=== PATIENT | female | born 1965 | race Caucasian/White ===

== ENCOUNTER 2024-01-28 23:29 | Emergency (ER) | payer OTHER, SELFPAY ==
--- NOTE | 2024-01-28 23:41 | EKG_ITS ---
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
[2024-01-28 23:42] VITALS: BP 196/111; PULSE 88; PULSE 96; RESP 16; TEMP 36.3; O2SAT 98; O2SAT 99; BMI 34.6
--- NOTE | 2024-01-28 23:42 | ED.AMS ---
HPI - Altered Mental Status General Chief Complaint: Neuro Symptoms/Deficit Stated Complaint: possible stroke Time Seen by Provider: 01/28/24 23:34 History of Present Illness HPI narrative: 58-year-old female presents for evaluation of possible stroke. Patient states that she was picking out [employer] this evening in her usual state of health. Prior to bed she took a sleeping pill Zaleplon, which she has not taken in several months. While lying in bed with her he noticed that she seemed to have slurred speech and was hallucinating various objects moving on the peguero. Patient states that she was looking at the chair and seeing different objects and clothing move around when they obviously were not. Has been also stated that the patient's speech seemed to be somewhat slurred. They decided to bring her in for evaluation. Patient states that she feels fine and back to usual. Exam Initial Vital Signs Initial Vital Signs: Vital Signs Temperature 97.3 F L 01/28/24 23:42 Pulse Rate 96 H 01/28/24 23:42 Respiratory Rate 16 01/28/24 23:42 Blood Pressure 196/111 H 01/28/24 23:42 Pulse Oximetry 98 01/28/24 23:42 Oxygen Delivery Method Room Air 01/28/24 23:42 Const: Awake, alert, no acute distress, nontoxic appearing Cardiac: regular rate, regular rhythm RESP: unlabored, clear bilaterally, no wheezing Skin: Warm, Dry, intact, no rashes Neuro: AO x3, CN II-XII grossly intact, normal gait, NIH 0 Course Orders Ordered: ED Orders 01/28/24 23:41 CT head/brain wo con Stat Ammonia (NH3) Stat CBC Auto Diff [Complete Blood Count AUTO DIFF] Stat CMP [Comprehensive Metabolic Panel] Stat Ethanol (ETOH) Stat MAG [Magnesium] Stat PT [Prothrombin Time INR] Stat EKG-12 Lead Stat 01/29/24 00:40 UA Complete [Urinalysis and Microscopic] Stat Urine Drug Screen, Rapid Stat Vital Signs Vital signs: Vital Signs - 8 hr 01/28/24 23:42 01/28/24 23:42 01/29/24 00:04 Temperature 97.3 F L Pulse Rate 96 H 88 89 Respiratory Rate 16 Blood Pressure 196/111 H Pulse Oximetry 98 99 99 Oxygen Delivery Method Room Air 01/29/24 00:08 01/29/24 00:08 01/29/24 00:30 Temperature Pulse Rate 87 85 Respiratory Rate 26 H 18 Blood Pressure 164/86 H Pulse Oximetry 98 99 Oxygen Delivery Method Room Air 01/29/24 00:30 01/29/24 01:47 Temperature Pulse Rate 84 Respiratory Rate 16 Blood Pressure 154/91 H 148/88 H Pulse Oximetry 100 Oxygen Delivery Method Room Air MDM - Altered Mental Status Differential Diagnosis Differential diagnosis: Likely altered mental status, delirium and dementia Lab Data 01/29/24 00:03 01/29/24 00:03 Labs: Lab Results 01/29/24 01/29/24 01/29/24 Range/Units 00:03 00:40 00:40 WBC 11.2 H (4.5-11.0) X10^3/uL RBC 4.91 (4.0-5.2) X10^6/uL Hgb 14.5 (12.0-16.0) g/dL Hct 44.1 (36-46) % MCV 89.7 (80-100) fL MCH 29.5 (26-34) PG MCHC 32.9 (30-36) % RDW 12.8 (11.6-14.8) % Plt Count 272 (150-400) X10^3/uL Neut % (Auto) 51.6 (50-75) % Lymph % (Auto) 26.0 (25-40) % [place] % (Auto) 8.5 (3-14) % Eos % (Auto) 13.1 H (2-4) % Baso % (Auto) 0.8 (0-2) % Neut # (Auto) 5800 (2177-8803) /uL Lymph # (Auto) 2900 (6019-8852) /uL [place] # (Auto) 1000 H (0-900) /uL Eos # (Auto) 1500 H (0-450) /uL Baso # (Auto) 100 (0-100) /uL PT 10.5 (9.4-12.5) SECONDS INR 0.9 (0.9-1.3) Sodium 137 (137-145) mmol/L Potassium 4.6 (3.4-5.1) mmol/L Chloride 105 (98-107) mmol/L Carbon Dioxide 28 (22-32) mmol/L BUN 14 (7-17) mg/dL Creatinine 0.86 (0.52-1.04) mg/dL Estimated GFR > 60 (>60) mL/min BUN/Creatinine Ratio 16.3 (6-22) Glucose 147 H (70-100) mg/dL Calcium 9.1 (8.4-10.2) mg/dL Magnesium 2.1 (1.6-2.3) mg/dL Total Bilirubin 0.9 (0.2-1.3) mg/dL AST 58 H (14-36) IU/L ALT 33 (<35) IU/L Alkaline Phosphatase 87 (38-126) U/L Ammonia < 9 L (9-30) umol/L Total Protein 7.0 (6.3-8.2) g/dL Albumin 4.0 (3.5-5.0) g/dL Globulin 3.0 (1.7-4.1) g/dL Albumin/Globulin Ratio 1.3 (1.0-2.8) Urine Color Yellow Urine Appearance Clear Urine pH 6.0 TNP (4.5-8.0) Ur Specific [place] <=1.005 (1.000-1.035) Urine Protein Negative (Negative) Urine Glucose (UA) Negative (Negative) g/dL Urine Ketones Negative (NEGATIVE) Urine Occult Blood Negative (Negative) Urine Nitrate Negative (Negative) Urine Bilirubin Negative (NEGATIVE) Urine Urobilinogen 0.2 (0.2) E.U./dL Ur Leukocyte Esterase Negative (NEGATIVE) Urine RBC None seen (0-5/HPF) Urine WBC None seen (0-5/HPF) Ur Squamous Epith Cells 0-1 /hpf (0-5/HPF) Urine Bacteria None seen (None) Ur Culture Indicated? Cult not indicated Vol Urine Centrifuged 10ml (spun) U Opiates 300ng/mL cut Negative (Negative) Ur Oxycodone Screen Negative (Negative) Urine Methadone Screen Negative (Negative) Ur Barbiturates Screen Negative (Negative) U Tricyclic Antidepress Negative (Negative) Ur Phencyclidine Scrn Negative (Negative) Ur Amphetamines Screen Positive H (Negative) U Methamphetamines Scrn Negative (Negative) Ur MDMA Scrn (Ecstasy) Negative (Negative) U Benzodiazepines Scrn Negative (Negative) Urine Cocaine Screen Negative (Negative) U Marijuana (THC) Screen Negative (Negative) Urine Specific [place] TNP Ethyl Alcohol < 10 ( - 10) mg/dL Ur Creatinine TNP Urine Dip Bedside Urine Glucose Negative Bedside Urine Bilirubin - Negative Bedside Urine Ketone - Negative Urine Specific [place] 1.005 Bedside Urine Occult Blood - Negative Bedside Urine pH 6.0 Bedside Urine Protein - Negative Bedside Urine Urobilinogen - Negative Bedside Urine Nitrite - Negative Bedside Urine Leukocytes - Negative Esterase Imaging Data CT scan - head: Radiologist's Impression: PROCEDURE: CT HEAD/BRAIN WO CON INDICATIONS: AMS, SLURRED SPEECH TECHNIQUE: Noncontrast 4.5 mm thick angled axial sections acquired from the foramen magnum to the vertex, with coronal and sagittal reformats. For radiation dose reduction, the following was used: automated exposure control, adjustment of mA and/or kV according to patient size. COMPARISON: None. FINDINGS: Image quality: Diagnostic. CSF spaces: Basal cisterns are patent. No extra-axial fluid collections. Ventricles are normal in size and shape. Brain: No midline shift. No intracranial masses or hemorrhage. Yu-white matter interface is normal. Skull and face: Calvarium and visualized facial bones are intact, without suspicious lesions. Sinuses: Complete opacification of the ethmoid air cells and frontal sinuses. The mastoids are clear. IMPRESSION: No acute intracranial pathology. Dictated by: Reagan Herrera M.D. on 01/29/2024 at 0:06 Approved by: Reagan Herrera M.D. on 01/29/2024 at 0:07 [facility] Narrative Medical decision making narrative: Visual hallucinations and slurred speech at home before bed, none currently. On assessment patient has no slurred speech, no ataxia, no hallucinations. NIH 0. Visual hallucinations would lend against a stroke-like process. Possibly secondary to taking the sleeping pill for the 1st time in multiple weeks. Laboratory work reviewed, no significant abnormalities identified. Ammonia undetectable, ethanol undetectable. UDS positive for amphetamines, however patient does take phentermine for weight loss. Repeat assessment shows NIH is again 0. She has had no return if symptoms since arrival to the emergency department. Patient and counseled on lab/imaging findings. Recommended coming back to ED for repeat assessment if symptoms recur. Care should be taken with the sleeping pill in the future. Discharge Plan Departure Patient Disposition: Home Clinical Impression: Hallucinations, visual Instructions: Zaleplon Activity Restrictions/Additional Instructions: Your CT scan blood work, and urinalysis were all normal today. I do suspect that a contributing factor in what happened today was restarting the sleeping pill. Try to avoid this medication if possible. It was important to eat well and rest, however that is difficult to do during the holidays. If any new symptoms arise or you develop numbness, weakness, persistent slurred speech, or any other concerning symptoms please come back to the emergency department for repeat assessment. Stand Alone Forms: Patient Portal/API/Survey, Work Release Note
[2024-01-29 00:04] VITALS: PULSE 89; O2SAT 99
[2024-01-29 00:08] VITALS: BP 164/86; PULSE 87; RESP 26; O2SAT 98
[2024-01-29 00:15] LABS: Add Manual Diff / Slide Review NO; Basophils Absolute Auto 100 /uL (0-100); Basophils Percent Auto 0.8 % (0-2); Eosinophils Absolute Auto 1500 /uL (0-450); Eosinophils Percent Auto 13.1 % (2-4); Hematocrit 44.1 % (36-46); Hemoglobin 14.5 g/dL (12.0-16.0); Lymphocytes Absolute Auto 2900 /uL (1100-4500); Mean Corpuscular HGB Conc 32.9 % (30-36); Mean Corpuscular Hemoglobin 29.5 PG (26-34); Mean Corpuscular Volume 89.7 fL (80-100); Monocytes Absolute Auto 1000 /uL (0-900); Monocytes Percent Auto 8.5 % (3-14); Neutrophils Absolute Auto 5800 /uL (1500-7000); Neutrophils Percent Auto 51.6 % (50-75); Platelet Count 272 X10^3/uL (150-400); Red Blood Cell Count 4.91 X10^6/uL (4.0-5.2); Red Cell Distribution Width 12.8 % (11.6-14.8); White Blood Cell Count 11.2 X10^3/uL (4.5-11.0)
[2024-01-29 00:30] VITALS: BP 154/91; PULSE 85; RESP 18; O2SAT 99
[2024-01-29 00:30] LABS: Alanine Aminotransferase 33 IU/L (<35); Albumin Globulin Ratio 1.3 (1.0-2.8); Alkaline Phosphatase 87 U/L (38-126); Ammonia (NH3) < 9 umol/L (9-30); Aspartate Aminotransferase 58 IU/L (14-36); BUN Creatinine Ratio 16.3 (6-22); Bilirubin Total 0.9 mg/dL (0.2-1.3); Blood Urea Nitrogen 14 mg/dL (7-17); Calcium 9.1 mg/dL (8.4-10.2); Carbon Dioxide 28 mmol/L (22-32); Chloride 105 mmol/L (98-107); Estimated Glomerular Filt Rate > 60 mL/min (>60); Ethanol (ETOH) < 10 mg/dL; Glucose 147 mg/dL (70-100); Magnesium 2.1 mg/dL (1.6-2.3); Potassium 4.6 mmol/L (3.4-5.1); Sodium 137 mmol/L (137-145)
[2024-01-29 00:35] LABS: INR 0.9 (0.9-1.3); Prothrombin Time 10.5 SECONDS (9.4-12.5)
[2024-01-29 00:36] LABS: HEMOLYSIS 178 (0-50)
[2024-01-29 01:12] LABS: Urine Amphetamines Positive (Negative); Urine Barbiturates Negative (Negative); Urine Benzodiazepines Negative (Negative); Urine Cocaine Negative (Negative); Urine MDMA Negative (Negative); Urine Methadone Negative (Negative); Urine Methamphetamines Negative (Negative); Urine Opiates Negative (Negative); Urine Oxycodone Negative (Negative); Urine Phencyclidine Negative (Negative); Urine THC Negative (Negative); Urine Tricyclic Antidepressant Negative (Negative)
[2024-01-29 01:15] LABS: Appearance Urine UA CLEAR; Bilirubin Urine UA NEGATIVE (NEGATIVE); Color Urine UA YELLOW; Glucose Urine UA NEGATIVE (Negative); Ketones Urine UA NEGATIVE (NEGATIVE); Leukocyte Esterase Urine UA NEGATIVE (NEGATIVE); Nitrite Urine UA NEGATIVE (Negative); Occult Blood Urine UA NEGATIVE (Negative); Protein Urine UA NEGATIVE (Negative); Specific Gravity Urine UA <=1.005 (1.000-1.035); Urobilinogen Urine UA 0.2 E.U./dL (0.2)
[2024-01-29 01:16] LABS: Bacteria Urine None Seen; Culture Indicated Urine Cult Not Indicated; RBC Urine None Seen (0-5/HPF); Squamous Epithelial Cell Urine 0-1 /HPF (0-5/HPF); Urine Volume 10mL (spun); WBC Urine None Seen (0-5/HPF)
[2024-01-29 01:47] VITALS: BP 148/88; PULSE 84; RESP 16; O2SAT 100
== END 2024-01-29 01:48 | disposition home or self-care (01) ==
PROVIDERS: Emergency Provider Emergency Medicine
DX: R44.1 Visual hallucinations (principal); R47.81 Slurred speech
CPT/HCPCS: 36415; 70450; 80053; 80305; 80320; 81001; 81003; 82140; 83735; 85025; 85610; 93005; 93010; 99284